=== PATIENT | female | born 1980 | race African-American/Black ===

== ENCOUNTER → 2017-07-24 | Outpatient (CLI) | payer OTHER ==
[~2017-07-24] MED LIST: ANTIVERT PO; ERY-TAB500 MG PO; FLEXERIL PO; VICODIN PO
--- NOTE | ~2017-07-24 | HM ---
Unit #: [id number] #: [id number] Patient: LAMONTE ANDERSON [id number] [address] [address] [id number] O MR#: [id number] NAME: LAMONTE ANDERSON : 1980 SEX: F STUDY DATE/TIME: 07/24/2017 UNIT: CE ROOM: STUDY DESCRIPTION: Holter Monitor Attending Physician: Sofia Goodwin M.D. Referring Physician: Sofia Goodwin M.D. Primary Care Physician: Sofia Goodwin M.D. CARDIOLOGY REPORT EXAM Holter Monitor DATE APPLIED 07/24/2017 DATE SCANNED 07/28/[address] Sofia Goodwin READ BY Dr. Caryn Slaughter REASON FOR TEST Supraventricular tachycardia. COMMENTS 1. Baseline rhythm is normal sinus. Average heart rate is 87 beats per minute with a minimum recorded heart rate of 53 and maximum recorded heart rate of 177. 2. 3 premature ventricular contractions were noted in 24 hours. 3. There were 11 isolated PACs. 4. At 8:44 a.m. 11 beat run of atrial tachycardia at a rate of 177 beats per minute is seen spontaneously converting back to normal sinus rhythm. No intervening bradycardia was noted. 5. There is no AV desmond block, sinus arrest or sinus pause. 6. The patient did not report any symptoms or maintain an activity diary. Dictated by... Raza RaygozaU/michael TD: 07/29/2017 10:56 JOB #: [id number] Unit #: [id number] #: [id number] Patient: LAMONTE ANDERSON CARDIOLOGY REPORT Page 1 of 1 X Jace Slaughter MD HOLTER MONITOR REPORT
== END | disposition home or self-care (01) ==
LOC: CEKG 08:40
DX: I47.1 Supraventricular tachycardia (principal)
CPT/HCPCS: 93225; 93226